=== PATIENT | male | born 1995 | race Two or more races ===

== ENCOUNTER 2018-05-15 13:44 | Emergency (ER) | payer SELFPAY ==
[2018-05-15] MEDS ORDERED: LORAZEPAM 2 MG INJ IV (14:00)
[2018-05-15] MEDS ORDERED: SOD CHLORIDE 0.9% 1,000 ML IV (14:00)
[2018-05-15] MEDS ORDERED: KETOROLAC 15 MG INJ IV (14:00)
== END 2018-05-15 14:32 | disposition left against medical advice (07) ==
LOC: E/R 13:44
DX: R07.9 Chest pain, unspecified (principal); M54.5 Low back pain
CPT/HCPCS: 93005; 99283-25